=== PATIENT | male | born 1960 | race Caucasian/White ===

== ENCOUNTER 2017-02-23 09:53 | Emergency (ER) | payer OTHER ==
[2017-02-23 09:59] VITALS: TEMP 98.4; BMI 28.7
[2017-02-23] MEDS ORDERED: MECLIZINE HCL 25 MG TABLET (FP) PO ONE (10:32)
--- NOTE | 2017-02-23 10:32 | PDOC ---
History of Present Illness - General Chief Complaint: Lightheaded Stated Complaint: dizziness,feels like vertigo Time Seen by Provider: 02/23/17 10:05 History Source: Patient Exam Limitations: No Limitations - History of Present Illness Initial Comments: 02/23/17 10:31 57 yo male with h/o prior vertigo, here with c/o vertigo feeling after waking this am. left ear is worse than right. no ringing. no cp no sob no lightheaded. does have associated mild nauseas. in [place] 2 weeks ago believed he may have gotten water in his ear. Past History - Past Medical History Allergies/Adverse Reactions: Allergies Allergy/AdvReac Type Severity Reaction Status Date / Time No Known Allergies Allergy Verified 02/23/17 09:55 Home Medications: Ambulatory Orders NK [No Known Home Medication] 02/23/17 Anemia: No Asthma: No Cancer: No Cardiac Disorders: No CVA: No COPD: No CHF: No DVT: No Dementia: No Diabetes: No Dialysis: No GI Disorders: No Disorders: No HTN: No Hypercholesterolemia: No Kidney Stones: Yes Liver Disease: No Psychiatric Problems: No Seizures: No Thyroid Disease: No Lung CA: No - Surgical History Abdominal Surgery: No Appendectomy: No Cardiac Surgery: No Cholecystectomy: No Lung Surgery: No Neurologic Surgery: No Orthopedic Surgery: No - Suicide/Smoking/Psychosocial Hx Smoking Status: No Smoking History: Never smoked Have you smoked in the past 12 months: No Number of Cigarettes Smoked Daily: 0 Information on smoking cessation initiated: No Hx Alcohol Use: Yes (socially) Drug/Substance Use Hx: No Substance Use Type: None Hx Substance Use Treatment: No Review of Systems - Review of Systems Constitutional: No: Chills, Diaphoresis, Fever HEENTM: Yes: Hearing Loss. No: Mouth Swelling Respiratory: No: Cough Cardiac (ROS): No: Chest Pain, Edema ABD/GI: Yes: Nausea. No: Poor Appetite, Poor Fluid Intake : No: Dysuria, Discharge Neurological: Yes: Other (vertigo). No: Headache, Numbness Endocrine: No: Flushing Hematologic/Lymphatic: No: Anemia All Other Systems: Reviewed and Negative *Physical Exam - Vital Signs Last Vital Signs Temp Pulse Resp BP Pulse Ox 98.4 F 55 L 18 126/82 99 02/23/17 09:54 02/23/17 09:54 02/23/17 09:54 02/23/17 09:54 02/23/17 09:54 - Physical Exam General Appearance: Yes: Appropriately Dressed HEENT: positive: Normal ENT Inspection, Other (tm occluded by wax, bilat nasal turbinate enlargment. post pharynx cobblestoning) Neck: positive: Trachea midline Respiratory/Chest: positive: Lungs Clear, Normal Breath Sounds Cardiovascular: positive: Regular Rhythm, Regular Rate, S1, S2. 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 alt hand movement nml, gait normal.) Procedures - Additional Procedures Additional Procedures: other (cerumen disimpaction bilaterally) ED Treatment Course - LABORATORY CBC & Chemistry Diagram: 02/23/17 10:30 02/23/17 10:30 Medical Decision Making - Medical Decision Making 02/23/17 11:40 57 yo male with h/o vertigo, here with persistant vertigo feeling, ear fullness , c/o cerumen impaction on exam bilat TM occulded by wax. plan normal cerebellar exam, c/w peripheral vertigo. labs r/o electrolyte abnormality, or anemia. iv hydration, and cerumen disimpaction. meclizine. reassess. 02/23/17 11:43 cerumen cleared with hydrogen peroxide and irrigation. tolerated well. large cerumen removed. labs normall will dc with ENT fu and allergy medication. meclizine. *DC/Admit/Observation/Transfer Diagnosis at time of Disposition: Vertigo, benign positional, Excessive cerumen in both ear canals - Discharge Dispostion Disposition: HOME Condition at time of disposition: Improved Admit: No - Referrals Referrals: Cesar Ramachandran MD [Staff Physician] - - Patient Instructions Printed Discharge Instructions: Cerumen Impaction, Benign Paroxysmal Positional Vertigo Additional Instructions: you can take meclizine 25 mg every 6 hour as needed for vertigo. you should also consider taking zyrtec 5 mg daily or claritin as it will help with allergy symptoms. follow up [facility] ENT doctor Duarte ( see referral information for phone number and call to schedule). return for any concerns or problems.
[2017-02-23] MEDS ORDERED: MECLIZINE HCL 25 MG TABLET (FP) ONE (10:36)
[2017-02-23 10:43] LABS: BASOPHIL 0.9 % (0-2.0); EOSINOPHIL 0.3 % (0-4.5); MCHC 34.5 g/dl (32.0-35.9); MEAN CELL VOLUME 84.1 fl (80-96); MEAN PLT VOLUME 10.2 fl (7.5-11.1); NEUTROPHILS 75.6 % (42.8-82.8); PLATELET COUNT 201 K/MM3 (134-434); RDW 12.4 % (11.9-15.9); WHITE BLOOD COUNT 9.8 K/mm3 (4.0-10.8)
[2017-02-23] MEDS ORDERED: SODIUM CHLORIDE 0.9% 1000 ML INFUS.BAG IV ONE (10:51)
[2017-02-23 11:00] LABS: ALBUMIN 4.2 g/dl (3.5-5.0); ALK PHOS 68 U/L (32-92); ANION GAP 7 (8-16); BILIRUBIN,TOTAL 0.7 mg/dl (0.2-1.0); CALCIUM 9.7 mg/dl (8.4-10.2); CO2 24 mmol/L (22-28); CREATININE 0.8 mg/dl (0.6-1.3); GLUCOSE,RANDOM 139 mg/dl (74-106); SGOT/AST 20 U/L (10-42); SGPT/ALT 21 U/L (10-40); TOT PROT 6.9 g/dl (6.4-8.3)
[2017-02-23 12:06] VITALS: BP 124/78; PULSE 60
--- NOTE | 2017-02-23 13:40 | EKG ---
Test Reason : Blood Pressure : / mmHG Vent. Rate : 058 BPM Atrial Rate : 058 BPM P-R Int : 202 ms QRS Dur : 096 ms QT Int : 430 ms P-R-T Axes : 008 046 034 degrees QTc Int : 422 ms SINUS BRADYCARDIA OTHERWISE NORMAL ECG NO PREVIOUS ECGS AVAILABLE Confirmed by JEFF CONNOLLY MD ([id number]) on 02/23/2017 1:39:51 PM Referred By: JM REAL Confirmed By:JEFF CONNOLLY MD
== END 2017-02-23 12:04 | disposition home or self-care (01) ==
LOC: FER 09:53
PROC: 3E0337Z Introduction of Electrolytic and Water Balance Substance into Peripheral Vein, Percutaneous Approach (ICD-10-PCS; principal; 2017-02-23)
DX: R42 Dizziness and giddiness (principal); H61.23 Impacted cerumen, bilateral
CPT/HCPCS: 36415; 80053; 84484; 85025; 93005; 99282-25

== ENCOUNTER 2017-04-13 07:51 | Day surgery (SDC) | payer OTHER ==
[2017-04-10 15:00] VITALS: BMI 31.1
[2017-04-13] MEDS ORDERED: LIDOCAINE HCL/PF 2% SDV 5ML VIAL ONE (07:58)
[2017-04-13] MEDS ORDERED: PROPOFOL 20 ML ONE ×2 (07:58)
[2017-04-13 11:22] VITALS: BP 121/65; PULSE 68; TEMP 98
== END 2017-04-13 11:10 | disposition home or self-care (01) ==
LOC: FASU-ENDO 07:51
PROVIDERS: ATTEND Internal Medicine Gastroenterology
PROC: 0DJD8ZZ Inspection of Lower Intestinal Tract, Via Natural or Artificial Opening Endoscopic (ICD-10-PCS; principal; 2017-04-13 10:24)
DX: Z12.11 Encounter for screening for malignant neoplasm of colon (principal); K57.30 Diverticulosis of large intestine without perforation or abscess without bleeding; Z83.71 Family history of colonic polyps

== ENCOUNTER 2022-10-20 07:14 | Day surgery (SDC) | payer OTHER ==
[2022-10-17 09:18] VITALS: BMI 31.1
[2022-10-20 07:33] VITALS: RESP 18
[2022-10-20] MEDS ORDERED: PROPOFOL 120 ML ONE (07:43)
[2022-10-20 08:51] VITALS: BP 107/66; PULSE 67; TEMP 97
== END 2022-10-20 09:10 | disposition home or self-care (01) ==
LOC: FASU-ENDO 07:14
PROVIDERS: ATTEND Internal Medicine Gastroenterology
PROC: 0DJD8ZZ Inspection of Lower Intestinal Tract, Via Natural or Artificial Opening Endoscopic (ICD-10-PCS; principal; 2022-10-20 08:19)
DX: Z12.11 Encounter for screening for malignant neoplasm of colon (principal); K57.30 Diverticulosis of large intestine without perforation or abscess without bleeding; Z83.71 Family history of colonic polyps